=== PATIENT | male | born 1930 | race Caucasian/White ===

== ENCOUNTER 2017-06-21 21:24 | Emergency (ER) | payer MEDICARE ==
[2017-06-21] MEDS ORDERED: Metoprolol Tartrate 5 MG/5 ML VIAL ONE (21:36)
[2017-06-21 21:50] LABS: #Basophils 0.1 thou/uL (0.0-0.2); #Eosinphils 0.1 thou/uL (0.0-0.7); #Neutrophils 6.3 thou/uL (1.40-6.50); %Basophils 0.6 % (0.0-1.0); %Eosinophils 0.8 % (0.0-10.0); %Monocytes 10.5 % (0.0-10.0); Hemoglobin 13.8 g/dL (14.0-18.0); Mean Corpuscular HGB CONC 33.3 g/dL (32.0-36.0); Mean Corpuscular Hemoglobin 33.5 pg (27.0-31.0); Mean Platelet Volume 6.7 fL (7.4-10.4); Platelet Count 238 thou/uL (130-400); RBC Distribution Width 11.9 % (11.5-14.5); Red Blood Cell (RBC) Count 4.13 mill/uL (4.70-6.10); White Blood Cell (WBC) Count 9.4 thou/uL (4.8-10.8)
--- NOTE | 2017-06-21 22:08 | RAD ---
PORTABLE CHEST: HISTORY: Dyspnea. FINDINGS: Heart size is within normal limits. There are atherosclerotic changes of the aorta. The lungs are c lear of infiltrates. There are no signs of failure. IMPRESSION: No active intrathoracic disease. POS: [facility]
[2017-06-21 22:09] LABS: ALT (SGPT) 11 U/L (8-55); AST (SGOT) 19 U/L (5-34); Alkaline Phosphatase 48 U/L (40-150); Anion Gap 11 mmol/L (10-20); BUN (Urea Nitrogen) 16 mg/dL (8.4-25.7); Bilirubin, Total 0.6 mg/dL (0.2-1.2); CK (CPK) 226 U/L (30-200); Calc. Creatinine Clearance 0 mL/min (70-130); Calcium 9.1 mg/dL (7.8-10.44); Carbon Dioxide 27 mmol/L (23-31); Chloride 102 mmol/L (98-107); Estimated GFR-MDRD 67; Globulin 3.4 g/dL (2.4-3.5); Glucose 104 mg/dL (83-110); Lipase 14 U/L (8-78); Potassium 4.4 mmol/L (3.5-5.1); Protein, Total 7.4 g/dL (5.8-8.1); Sodium 136 mmol/L (136-145)
[2017-06-21] MEDS ORDERED: Diltiazem 125 MG/25 ML ONE (22:09)
[2017-06-21 22:13] LABS: CKMB 3.5 ng/mL (0-6.6); Troponin I Less than 0.010 ng/mL (< 0.028)
== END 2017-06-21 22:50 | disposition home or self-care (01) ==
LOC: ERS 21:24
DX: I48.91 Unspecified atrial fibrillation (principal); E78.5 Hyperlipidemia, unspecified; G30.9 Alzheimer's disease, unspecified; F02.80 Dementia in other diseases classified elsewhere, unspecified severity, without behavioral disturbance, psychotic disturbance, mood disturbance, and anxiety
CPT/HCPCS: 71045; 80053; 82553; 83690; 83880; 84484; 85025; 93005; 96374

== ENCOUNTER 2017-11-01 10:44 | Inpatient (IN) | payer MEDICARE ==
[~2017-11-01 10:44] MED LIST: ISOVUE-370 76%-LOCM 1 ML ONE
[2017-11-01 11:33] LABS: #Eosinphils 0.3 thou/uL (0.0-0.7); #Lymphocytes 1.4 thou/uL (1.20-3.40); %Basophils 0.1 % (0.0-1.0); %Eosinophils 3.6 % (0.0-10.0); %Lymphocytes 15.9 % (21.0-51.0); %Monocytes 11.8 % (0.0-10.0); %Neutrophils 68.6 % (42.0-75.0); Mean Corpuscular HGB CONC 32.2 g/dL (32.0-36.0); Mean Corpuscular Hemoglobin 32.9 pg (27.0-31.0); Mean Platelet Volume 6.4 fL (7.4-10.4); Platelet Count 225 thou/uL (130-400); RBC Distribution Width 12.2 % (11.5-14.5); Red Blood Cell (RBC) Count 3.65 mill/uL (4.70-6.10); White Blood Cell (WBC) Count 8.8 thou/uL (4.8-10.8)
[2017-11-01 11:59] LABS: ALT (SGPT) 7 U/L (8-55); AST (SGOT) 16 U/L (5-34); Albumin 3.5 g/dL (3.4-4.8); Alkaline Phosphatase 71 U/L (40-150); Anion Gap 14 mmol/L (10-20); BUN (Urea Nitrogen) 15 mg/dL (8.4-25.7); Bilirubin, Total 0.9 mg/dL (0.2-1.2); Calc. Creatinine Clearance 0 mL/min (70-130); Carbon Dioxide 28 mmol/L (23-31); Chloride 100 mmol/L (98-107); Estimated GFR-MDRD 83; Globulin 3.3 g/dL (2.4-3.5); Glucose 96 mg/dL (83-110); Potassium 4.5 mmol/L (3.5-5.1); Protein, Total 6.8 g/dL (5.8-8.1); Sodium 137 mmol/L (136-145)
--- NOTE | 2017-11-01 12:03 | RAD ---
PA AND LATERAL CHEST XRAY: DATE: 11/01/17. HISTORY Dyspnea. COMPARISON: 06/21/17. FINDINGS: Cardiac silhouette and pulmonary vasculature are within normal limits. There are mild chronic lung c hanges seen. No focal consolidation or pleural fluid is seen. Degenerative changes are noted in the spine. Vascular calcification is seen in the thoracic as well as the visualized upper abdominal aor ta. There is a compression fracture involving an upper lumbar vertebral body incompletely imaged or evaluated and the age of the fracture is difficult to determine based on this exam. IMPRESSION: 1. No acute cardiopulmonary process. 2. Mild chronic lung changes. 3. Findings suggestive of a wedge-shaped compression fracture of an upper lumbar vertebral body. Th is is incompletely imaged or evaluated on this examination, and the exact age of the fracture is inde terminate. 4. Vascular calcifications in the thoracic and abdominal aorta. POS: [facility]
[2017-11-01 12:04] LABS: CKMB 2.3 ng/mL (0-6.6); Troponin I Less than 0.010 ng/mL (< 0.028)
--- NOTE | 2017-11-01 12:05 | RAD ---
THREE VIEWS LEFT FOOT: DATE: 11/01/17. HISTORY: Patient dementia and unable to provide accurate history. The patient has left foot swelling. FINDINGS: There is a large amount of subcutaneous soft tissue swelling seen at the dorsal aspect of the forefoo t at the level of the metatarsals. No underlying fracture is seen. The toes are held in flexion, bu t no definite fracture is seen. There is osteoarthritis involving the interphalangeal joints as well as involving the 1st tarsometatarsal and 1st metatarsophalangeal joint. A plantar calcaneal entheso phyte is seen. Vascular calcifications are see at the level of the ankle. IMPRESSION: 1. Scattered osteoarthritis left foot without evidence of an acute osseous abnormality. 2. Prominent subcutaneous soft tissue swelling dorsal aspect of the forefoot. 3. The above findings were discussed with Dr. Bro on 11/01/17 at 1144 hours. CODE CR POS: [facility]
--- NOTE | 2017-11-01 13:08 | RAD ---
THREE VIEWS LEFT ANKLE: DATE: 11/01/17. HISTORY: Prominent subcutaneous soft tissue swelling. Patient with dementia and unable to provide a history. FINDINGS: The ankle mortise is congruent. No fracture or dislocation is seen involving the left ankle. A plan tar calcaneal enthesophyte is seen. There is subcutaneous soft tissue swelling about the ankle bilat erally. Vascular calcifications are seen at the distal aspect of the left lower extremity and at the ankle. IMPRESSION: 1. Subcutaneous soft tissue swelling without evidence of an acute osseous abnormality. 2. The above findings were discussed with Dr. Garcia on 11/01/17 at 1144 hours. CODE CR POS: [facility]
--- NOTE | 2017-11-01 13:46 | ULT ---
ULTRASOUND LEFT LOWER EXTREMITY VENOUS DOPPLER: Date: 11/01/17 HISTORY: Pain. COMPARISON: None. TECHNIQUE: Real-time Palma scale and color Doppler with spectral analysis of the left lower extremity venous sys tem was performed. Common femoral, femoral, proximal portions of greater saphenous and deep femoral v eins, as well as the popliteal and posterior tibial veins were interrogated. FINDINGS: There is partial thrombus of the left popliteal vein. Noted veins have normal flow, augmentation, and compression. IMPRESSION: Partial thrombosis left popliteal vein. Emergency department notified of findings at 1256 hours. CODE CR. POS: [place]
--- NOTE | 2017-11-01 14:15 | CT ---
CT ANGIOGRAM OF THE CHEST: HISTORY: Dyspnea. COMPARISON: None. TECHNIQUE: CT angiogram of the chest was performed in the axial plane. Three-dimensional reformatted images are submitted for interpretation. FINDINGS: No mediastinal mass, lymphadenopathy, or hematoma. Heart size is upper limits of normal. A small am ount of pericardial fluid. There are coronary artery calcifications. There is atherosclerosis of a nonaneurysmal aorta. Evaluation is limited due to lack of contrast opacification. Moderate hiatal h ernia is identified. Upper solid organs are grossly unremarkable. Note, there is a small amount of reflux of contrast into the inferior vena cava suggesting right heart failure. No significant pleura l fluid. Trachea and central bronchi are patent. Small focus of consolidation in the medial superio r right lower lobe, infrahilar in location. Patchy interstitial opacities, without consolidation. N o pneumothorax. Adequate contrast opacification of the pulmonary arterial system to the level of the segmental arteri es. No filling defect to suggest thromboembolism. IMPRESSION: 1. No evidence of pulmonary artery embolism to the level of the segmental arteries. 2. Right heart failure. 3. Patchy interstitial opacities. Small bilateral effusions. No consolidation. POS: [facility]
[2017-11-01 14:28] LABS: Bilirubin Negative (Negative); Blood, Urine Trace (Negative); Clarity CLEAR (Clear); Glucose, Urine (Dipstick) Negative (Negative); Leukocyte Moderate (Negative); Nitrite Negative (Negative); Protein, Urine (Dipstick) Negative (Neg-Trace); pH, Urine 6.5 (5.0-9.0)
[2017-11-01 14:29] LABS: Bacteria/HPF None Seen HPF (None Seen); Hyaline Casts/LPF 0-3 HYALINE CAST LPF (0-3 Hyaline); Squamous Epithelial 0-3 HPF (0-3); WBC/HPF 21-50 HPF (0-3)
[2017-11-01 14:30] LABS: Renal Epithelial None Seen HPF (0-3); Transitional Epithelial NONE SEEN HPF (0-3)
[2017-11-01] MEDS ORDERED: Furosemide 40 MG/4 ML VIAL ONE (14:36)
[2017-11-01] MEDS ORDERED: cefTRIAXone\\ROCEPHIN 1 GM VIAL ONE (15:05)
[2017-11-01 15:32] LABS: Troponin I Less than 0.010 ng/mL (< 0.028)
[2017-11-01 18:20] LABS: Troponin I Less than 0.010 ng/mL (< 0.028)
[2017-11-01] MEDS: Latanoprost 0.005% Ophth Soln 2.5 ml Bottle L EYE SCH (20:51)
[2017-11-01] MEDS: Donepezil HCl 10 MG TAB PO SCH (20:51)
[2017-11-01] MEDS ORDERED: risperiDONE 1 MG TAB PO SCH (21:00)
[2017-11-02] MEDS ORDERED: Ziprasidone 20 MG VIAL IM SCH (00:30)
[2017-11-02] MEDS ORDERED: Sterile Water 10 ML VIAL FS SCH (00:30)
--- NOTE | 2017-11-02 08:02 | HP ---
DATE OF ADMISSION: 11/01/2017 REASON FOR ADMISSION AND CHIEF COMPLAINT: Shortness of breath and hypoxia. HISTORY OF PRESENT ILLNESS: Mr. Mon is an 87-year-old male with past medical history of dementia, chronic atrial fibrillation, recent fall, was noted to having difficulty breathing. The patient was hypoxic at the [facility]. So, nursing staff noted his O2 saturation was 85% on room air. The patient was put on oxygen and sent to the hospital. In the ER, the patient was evaluated. The patient was thought to have acute CHF. He is going to the ER physician and he was also hypotensive. Blood pressure was 85/60. He received a dose of Lasix 40 IV push in the ER and he was also found to have DVT of the left popliteal vein, but patient was already on Xarelto. The patient also had recent fall at the [facility] sustained marked swelling of the left foot, x- ray did not show any fracture of the foot. The patient is being admitted for any evidence of DVT and possible CHF with hypoxia. PAST MEDICAL HISTORY: 1. Chronic atrial fibrillation. 2. Dementia. 3. History of psychotic disorder with delusions. 4. History of depression. 5. Hyperlipidemia. 6. History of unstable gait. 7. History of glaucoma. PAST SURGICAL HISTORY: Nothing significant. CURRENT MEDICATIONS: The patient is on Celexa 20 mg daily, diltiazem 240 mg daily, Aricept 10 mg daily, Lasix 20 mg daily, latanoprost eye drops daily, Namenda 10 mg b.i.d., Risperdal 1 mg at bedtime, Xarelto 20 mg daily, Flomax 0.4 mg daily, and tramadol p.r.n. ALLERGIES: No known drug allergies. FAMILY HISTORY: Nothing of interest. SOCIAL HISTORY: The patient is a resident of [facility]. No history of smoking or alcohol intake REVIEW OF SYSTEMS: Cardiovascular: No chest pain. The patient denies any shortness of breath. Respiratory: No fever or cough. Gastrointestinal: No nausea or vomiting. No abdominal pain. Genitourinary: No dysuria or hematuria. Central nervous system: No headache, no dizziness. PHYSICAL EXAMINATION: GENERAL: The patient is alert, awake, not well oriented. VITAL SIGNS: Temperature 98, pulse 63, respirations 20, blood pressure 120/60. HEENT: Head is normocephalic, atraumatic. Pupils equal and reactive to light. Nasopharynx is pale and dry. Hard and soft palate, no lesions seen. SKIN: Skin turgor decreased. NECK: Supple. No JVD. LUNGS: Breath sounds diminished bilaterally. Percussion dull bilaterally, basilar rales present. HEART: S1, S2. Irregularly irregular. ABDOMEN: Soft, no distention, no tenderness. Normal bowel sounds present. RECTAL: Deferred. CENTRAL NERVOUS SYSTEM: The patient is alert, awake, not well oriented. Motor system: Power 4/5 in all extremities. Deep tendon reflexes 2+ bilaterally. Plantar downgoing. Sensory intact. EXTREMITIES: Left ankle and left foot markedly swollen. There is ecchymosis present, blisters present . LABORATORY DATA: CBC shows WBC 8.8, hemoglobin 12, hematocrit 37. Metabolic panel: Sodium 137, potassium 4.5, chloride 100, CO2 of 28, urea nitrogen 15, creatinine 0.87, glucose 96, troponin less than 0.010 and D-dimer was 1.18. Urinalysis showed wbc 21-50, moderate leukocyte esterase. Chest x-ray showed chronic changes. X-ray of the foot to the ankle, no evidence of fracture. CT angio of chest negative for pulmonary embolism. Vascular ultrasound showed thrombosis on the left popliteal vein. ASSESSMENT: 1. Deep vein thrombosis, left popliteal vein. 2. Status post fall with left foot ankle contusion and ecchymosis. 3. Possible congestive heart failure. 4. Atrial fibrillation, chronic. 5. Dementia. 6. History of psychotic disorder with delusions and hyperlipidemia. 7. History of depression. PLAN: 1. Vital signs q.4 hours. 2. Activities: As tolerated. 3. Allergies: NKDA. 4. Hep-Lock. 5. Diet: Cardiac. 6. Xarelto 20 mg daily. 7. Continue [facility] medications. 8. Lasix 20 mg IVP daily. 9. CK-MB and troponin I q.8 hours x2. 10. Echocardiogram. 11. BMP in the morning. 12. Cardiology consult. DENNIS
[2017-11-02] MEDS: Citalopram 20 MG TAB PO SCH (09:35)
[2017-11-02] MEDS: Rivaroxaban 10 MG TAB PO SCH (09:36)
[2017-11-02] MEDS: Tamsulosin HCl 0.4 MG CAP PO SCH (09:37)
[2017-11-02] MEDS: Furosemide 20 MG/2 ML VIAL SLOW IVP SCH (09:37)
[2017-11-02] MEDS ORDERED: Digoxin 0.5 MG/2 ML AMP SLOW IVP SCH ×2 (18:15→18:45)
[2017-11-02] MEDS: Donepezil HCl 10 MG TAB PO SCH (20:41)
[2017-11-02] MEDS: Latanoprost 0.005% Ophth Soln 2.5 ml Bottle L EYE SCH (20:41)
[2017-11-02] MEDS ORDERED: risperiDONE 1 MG TAB PO SCH (21:00)
[2017-11-03] MEDS: traMADol HCl 50 MG TAB PO PRN ×2 (00:56→06:14)
--- NOTE | 2017-11-03 01:29 | CON ---
DATE OF CONSULTATION: 11/02/2017 REASON FOR CONSULTATION: Atrial fibrillation, shortness of breath, diastolic congestive heart failure. HISTORY OF PRESENT ILLNESS: Mr. Mon is an 87-year-old gentleman who came to the hospital last night, brought here from the nursing of hypoxemia and shortness of breath. He did receive intravenous furosemide and he is feeling better today. The patient has Alzheimer's dementia and cannot give history other than he feels better now. He was not having chest pain or pressure. MEDICATIONS: The patient's medication at home: 1. He was taking rivaroxaban 20 mg a day, but he has only started that about 12 days ago. 2. Tamsulosin. 3. Levofloxacin is being given here. 4. Furosemide 20 mg a day. 5. Diltiazem 120 mg CD a day. ALLERGIES: IODINE, and IODINE CONTAINING PRODUCTS. REVIEW OF SYSTEMS: Not very reliable as his Alzheimer dementia is severe. PAST MEDICAL HISTORY: Chronic atrial fibrillation. PHYSICAL EXAMINATION: GENERAL: This is a very pleasant elderly gentleman in no distress. VITAL SIGNS: Blood pressure 104/68-95/55, pulse 96-110, it is irregular. HEENT: Sclerae nonicteric. Mouth mucous membranes moist. NECK: Supple, no lymphadenopathy. LUNGS: Clear anteriorly. Few rales posteriorly at the bases. CARDIAC: Irregular, irregular, soft systolic murmur left lower sternal border. ABDOMEN: Soft, nontender. EXTREMITIES: No clubbing or cyanosis. There is mild to moderate edema. PERTINENT LABORATORY AND X-RAY FINDINGS: Hemoglobin is 12. BNP was 160. CT pulmonary angiogram was negative. Ultrasound did show some clot and left popliteal vein, which is partial. Echocardiogram revealed normal left ventricular ejection fraction, mild mitral regurgitation, moderate tricuspid insufficiency. ASSESSMENT: 1. Congestive heart failure, diastolic. 2. Atrial fibrillation, chronic. 3. Very small deep venous thrombosis. He has been started on Xarelto less than 2 weeks ago. PLAN: 1. I would recommend Xarelto 20 mg a day. 2. Avoid aspirin. 3. We will reduce diltiazem dose and add digoxin. 4. Probably home tomorrow if stable. MTDD
[2017-11-03] MEDS: Spironolactone 25 MG TAB PO SCH (08:40)
[2017-11-03] MEDS: Citalopram 20 MG TAB PO SCH (08:40)
[2017-11-03] MEDS: Tamsulosin HCl 0.4 MG CAP PO SCH (08:40)
[2017-11-03] MEDS: Furosemide 20 MG/2 ML VIAL SLOW IVP SCH (08:41)
[2017-11-03] MEDS: Digoxin 0.125 MG TAB PO SCH (08:41)
[2017-11-03] MEDS: Rivaroxaban 10 MG TAB PO SCH (08:41)
[2017-11-03] MEDS ORDERED: Digoxin 0.5 MG/2 ML AMP SLOW IVP SCH (09:00)
--- NOTE | 2017-11-03 11:27 | PRG ---
DATE OF SERVICE: 11/03/2017. SUBJECTIVE: Mr. Mon is doing okay. He apparently had some bad dreams last night and nightmares. He has no chest pain or pressure. He is breathing okay. OBJECTIVE: VITAL SIGNS: His blood pressure is 131/80, pulse is recorded as 135 last night , but I do not see any rhythm strips to document that, pulses like 100-110 now, atrial fibrillation. He is eating. LUNGS: Clear. CARDIAC: Irregular, irregular. ABDOMEN: Soft, nontender. EXTREMITIES: No edema. ASSESSMENT: 1. Atrial fibrillation with increased heart rate. 2. Diastolic congestive heart failure, improved. PLAN: 1. Give extra dose of digoxin 0.25 mg intravenously. 2. He is on diltiazem 180 mg a day. 3. He is anticoagulated. 4. Small deep venous thrombosis is probably old. He was started on Xarelto a couple of weeks ago. 5. He is on spironolactone and furosemide. Probably be ready to go home tomorrow. MTDFabio
--- NOTE | 2017-11-03 12:38 | PQF ---
CLINICAL DOCUMENTATION IMPROVEMENT CLARIFICATION FORM: ICD-10 Updated PLEASE DO AN ADDENDUM TO THE PROGRESS NOTE WITH ANY DOCUMENTATION UPDATES OR ADDITIONS AND CARRY THROUGH TO DC SUMMARY. THANK YOU. DATE: 11/01/17 ATTN: Dr. Chávez Please exercise your independent, professional judgment in responding to the clarification form. Clinical indicators are provided on the bottom of this form for your review Please check appropriate box(s): HEART FAILURE: A. ACUITY [y ] Acute [ ] Acute on Chronic [ ] Chronic [ ] Other diagnosis [ ] Unable to determine In addition, please specify: Present on Admission (POA): [ y] Yes [ ] No [ ] Unable to determine For continuity of documentation, please document condition throughout progress notes and discharge summary. Thank You. CLINICAL INDICATORS - SIGNS / SYMPTOMS / LABS ER RECORD: PT PRESENTS FOR EVALUATION OF SHORTNESS OF BREATH CHF EXACERBATION, HYPOXIA PN 11/02: DIASTOLIC CHF CARDIOLOGY PN 11/03: DIASTOLIC CONGESTIVE HEART FAILURE, IMPROVED. RISKS: H&P 11/01: 87 YO. RESIDENT OF DETENTION. HX CHRONIC A FIB, DEMENTIA,. TREATMENT: ER RECORD: LASIX 40 MG IV CPOE 11/01: LASIX 20 MG SLOW IVP Q AM Thank you, Stacie (This form is maintained as a part of the permanent medical record) 2014 [employer], [employer]. All Rights Reserved Stacie Bird RN, BSN [email or web address] Office: [phone] [facility]
[2017-11-03] MEDS: Latanoprost 0.005% Ophth Soln 2.5 ml Bottle L EYE SCH (20:23)
[2017-11-03] MEDS: Donepezil HCl 10 MG TAB PO SCH (20:23)
[2017-11-03] MEDS ORDERED: risperiDONE 1 MG TAB PO SCH (21:00)
[2017-11-04 05:15] LABS: #Basophils 0.1 thou/uL (0.0-0.2); #Eosinphils 0.4 thou/uL (0.0-0.7); #Lymphocytes 1.9 thou/uL (1.20-3.40); #Monocytes 0.9 thou/uL (0.11-0.59); #Neutrophils 6.2 thou/uL (1.40-6.50); %Basophils 0.5 % (0.0-1.0); %Eosinophils 4.1 % (0.0-10.0); %Lymphocytes 19.7 % (21.0-51.0); %Monocytes 9.9 % (0.0-10.0); %Neutrophils 65.6 % (42.0-75.0); Mean Corpuscular HGB CONC 33.2 g/dL (32.0-36.0); Mean Corpuscular Hemoglobin 33.5 pg (27.0-31.0); Mean Platelet Volume 6.6 fL (7.4-10.4); Platelet Count 270 thou/uL (130-400); Red Blood Cell (RBC) Count 3.59 mill/uL (4.70-6.10); White Blood Cell (WBC) Count 9.4 thou/uL (4.8-10.8)
[2017-11-04 05:26] LABS: Anion Gap 13 mmol/L (10-20); BUN (Urea Nitrogen) 17 mg/dL (8.4-25.7); Calc. Creatinine Clearance 66 mL/min (70-130); Calcium 8.9 mg/dL (7.8-10.44); Carbon Dioxide 27 mmol/L (23-31); Chloride 101 mmol/L (98-107); Estimated GFR-MDRD 84; Glucose 87 mg/dL (83-110); Potassium 3.8 mmol/L (3.5-5.1); Sodium 137 mmol/L (136-145)
--- NOTE | 2017-11-04 07:42 | PRG ---
DATE OF SERVICE: 11/04/2017 SUBJECTIVE: Mr. Mon is feeling well today, no chest pain or shortness of breath. His family member said he had a relatively good night. PHYSICAL EXAMINATION: VITAL SIGNS: His blood pressure 111/65, pulse 85, it is irregular. LUNGS: Clear. CARDIAC: Irregular, irregular. ABDOMEN: Soft, nontender. EXTREMITIES: There is no edema. ASSESSMENT: 1. Congestive heart failure, diastolic, compensated. 2. Atrial fibrillation, chronic. PLAN: 1. He is on diltiazem CD 180 mg a day. 2. Digoxin 0.125 mg a day. 3. Furosemide can change to 20 mg orally once a day. 4. Spironolactone 25 mg a day. 5. Okay with me to be released home at any time.
[2017-11-04] MEDS ORDERED: Potassium Chloride 20 MEQ TAB PO SCH (07:45)
[2017-11-04] MEDS: Spironolactone 25 MG TAB PO SCH (09:11)
[2017-11-04] MEDS: Tamsulosin HCl 0.4 MG CAP PO SCH (09:11)
[2017-11-04] MEDS: Digoxin 0.125 MG TAB PO SCH (09:12)
[2017-11-04] MEDS: Citalopram 20 MG TAB PO SCH (09:12)
[2017-11-04] MEDS: Rivaroxaban 10 MG TAB PO SCH (09:13)
[2017-11-04] MEDS: Furosemide 20 MG/2 ML VIAL SLOW IVP SCH (09:14)
[2017-11-04 12:29] VITALS: BP 97/54; TEMP 98.4
[2017-11-04] MEDS: traMADol HCl 50 MG TAB PO PRN (14:40)
[2017-11-04 15:06] VITALS: BMI 24.2
--- NOTE | 2017-11-06 16:35 | EKG ---
Test Reason : Blood Pressure : / mmHG Vent. Rate : 095 BPM Atrial Rate : 113 BPM P-R Int : 000 ms QRS Dur : 070 ms QT Int : 320 ms P-R-T Axes : 000 020 036 degrees QTc Int : 402 ms Atrial fibrillation Abnormal ECG Confirmed by CECY ARROYO ([id number]), editor magazine SHANTE SANCHEZ ([id number]) on 11/06/2017 4:35:01 PM Referred By: Confirmed By:CECY ARROYO
== END 2017-11-04 15:30 | DRG 299 ==
LOC: ERS 10:44 → 2NO 14:30
PROVIDERS: ADMIT Internal Medicine; ATTEND Internal Medicine
DX: I82.432 Acute embolism and thrombosis of left popliteal vein (principal); I50.31 Acute diastolic (congestive) heart failure; N39.0 Urinary tract infection, site not specified; I48.2 Chronic atrial fibrillation; I95.9 Hypotension, unspecified; R09.02 Hypoxemia; Z79.01 Long term (current) use of anticoagulants; F22 Delusional disorders; F32.9 Major depressive disorder, single episode, unspecified; E78.5 Hyperlipidemia, unspecified; S90.02XA Contusion of left ankle, initial encounter; G30.9 Alzheimer's disease, unspecified; F02.80 Dementia in other diseases classified elsewhere, unspecified severity, without behavioral disturbance, psychotic disturbance, mood disturbance, and anxiety; I11.0 Hypertensive heart disease with heart failure
CPT/HCPCS: 36415; 71046; 71275; 80048; 80053; 81003; 81015; 82553; 83880; 84484; 85025; 85379; 87086; 93005; 93306; 94760; 96361; 96365; 96375; A4216; G8978-GP-CL; G8979-GP-CJ; J0696; J1160; J1940; J3486